=== PATIENT | male | born 1995 | race Two or more races ===

== ENCOUNTER 2017-02-20 19:39 | Emergency (ER) | payer SELFPAY ==
[2017-02-20 19:48] VITALS: TEMP 97.9
[2017-02-20] MEDS ORDERED: predniSONE 20 MG TAB PO ONE (19:48)
[2017-02-20] MEDS ORDERED: IPRATROPIUM/ALBUTEROL 3 ML DEYVIAL IH ONE (19:48)
--- NOTE | 2017-02-20 19:49 | EDPHY ---
H & P Stated Complaint: increased sob and increased use in inhaler x 1 week Time Seen by Provider: 02/20/17 19:44 HPI/ROS: CHIEF COMPLAINT: Dyspnea HISTORY OF PRESENT ILLNESS: The patient is a 21-year-old man with a history of asthma who comes to the emergency department complaining of shortness of breath and cough for the last week. He states that it worsened today. He used his albuterol inhaler about 5 hours ago. He has not had a fever. His cough is nonproductive. He denies chest pain. REVIEW OF SYSTEMS: Constitutional: denies: chills, fever, recent illness, recent injury EENTM: denies: blurred vision, double vision, nose congestion Respiratory: See HPI Cardiac: denies: chest pain, irregular heart rate, lightheadedness, palpitations Gastrointestinal/Abdominal: denies: abdominal pain, diarrhea, nausea, vomiting, blood streaked stools Genitourinary: denies: dysuria, frequency, hematuria, pain Musculoskeletal: denies: joint pain, muscle pain Skin: denies: lesions, rash, jaundice, bruising Neurological: denies: headache, numbness, paresthesia, tingling, dizziness, weakness Hematologic/Lymphatic: denies: blood clots, easy bleeding, easy bruising Immunologic/allergic: denies: HIV/AIDS, transplant EXAM: GENERAL: Well-appearing, well-nourished and in no acute distress. HEAD: Atraumatic, normocephalic. EYES: Pupils equal round and reactive to light, extraocular movements intact, sclera anicteric, conjunctiva are normal. ENT: TMs normal, nares patent, oropharynx clear without exudates. Moist mucous membranes. NECK: Normal range of motion, supple without lymphadenopathy or JVD. LUNGS: Breath sounds clear to auscultation bilaterally and equal. No wheezes rales or rhonchi. HEART: Regular rate and rhythm without murmurs, rubs or gallops. ABDOMEN: Soft, nontender, normoactive bowel sounds. No guarding, no rebound. No masses appreciated. BACK: No CVA tenderness, no spinal tenderness, step-offs or deformities EXTREMITIES: Normal range of motion, no pitting or edema. No clubbing or cyanosis. NEUROLOGICAL: Cranial nerves II through XII grossly intact. Normal speech, normal gait. 5/5 strength, normal movement in all extremities, normal sensation PSYCH: Normal mood, normal affect. SKIN: Warm, dry, normal turgor, no visible rashes or lesions. Source: Patient Exam Limitations: No limitations - Medical/Surgical History Hx Asthma: Yes Hx Chronic Respiratory Disease: No Hx Diabetes: No Hx Cardiac Disease: No Hx Renal Disease: No Hx Cirrhosis: No Hx Alcoholism: No Hx HIV/AIDS: No Hx Splenectomy or Spleen Trauma: No Other PMH: untreated asthma, bronchitis - Family History Significant Family History: No pertinent family hx - Social History Smoking Status: Never smoked Alcohol Use: Sober Drug Use: None Constitutional: Initial Vital Signs Temperature (C) 36.6 C 02/20/17 19:46 Heart Rate 94 02/20/17 19:46 Respiratory Rate 20 02/20/17 19:46 Blood Pressure 116/81 H 02/20/17 19:46 O2 Sat (%) 98 02/20/17 19:46 O2 Delivery Mode Room Air Allergies/Adverse Reactions: No Known Allergies Allergy (Verified 02/20/17 19:45) Home Medications: Medication Instructions Recorded Albuterol Hfa Anes Only [Proair 2 puffs IH Q4 PRN #1 mdi 04/05/16 Hfa Icu (*)] Medical Decision Making ED Course/Re-evaluation: The patient's exam is clear. He is saturating 96% on room air. I will treat with a DuoNeb and steroids and observed. 8:35 p.m. the patient states that he feels some congestion. His vital signs are stable his sats are 98% on room air knee does not have any wheezing or rhonchi on exam. I suspect that he has an exacerbation from the smoke versus early bronchitis. We discussed treatment for this as well as follow-up and indications for returning to the emergency department. He understands and agrees with this plan. Differential Diagnosis: Partial list of the Differential diagnosis considered include but were not limited to; upper respiratory tract infection, asthma exacerbation, bronchitis and although unlikely based on the history and physical exam, I also considered pneumonia, pneumothorax, acute coronary disease. I discussed these differential diagnoses and the plan with the patient as well as the usual and expected course. The patient understands that the diagnosis is provisional and that in medicine we are not always correct and that further workup is often warranted. Usual and customary warnings were given. All of the patient's questions were answered. The patient was instructed to return to the emergency department should the symptoms at all worsen or return, otherwise to followup with the physician as we discussed. - Data Points Medications Given: Discontinued Medications Albuterol/Ipratropium (Duoneb) 3 ml IH EDNOW ONE Stop: 02/20/17 19:49 Last Admin: 02/20/17 19:54 Dose: 3 ml Prednisone (Prednisone) 60 mg PO EDNOW ONE Stop: 02/20/17 19:49 Last Admin: 02/20/17 19:54 Dose: 60 mg Departure - Departure Disposition: Home, Routine, Self-Care Clinical Impression: Exacerbation of asthma Condition: Fair Instructions: Asthma (ED) Referrals: NONE *PRIMARY CARE P,. [Primary Care Provider] - As per Instructions Daksha Santo MD [Medical Doctor] - As per Instructions
[2017-02-20 20:52] VITALS: BP 114/74; PULSE 95; RESP 18; O2SAT 96
== END 2017-02-20 20:52 | disposition home or self-care (01) ==
LOC: CED 19:39
DX: J45.901 Unspecified asthma with (acute) exacerbation (principal)

== ENCOUNTER 2017-03-10 20:49 | Observation (INO) | payer SELFPAY ==
[2017-03-10] MEDS ORDERED: IPRATROPIUM/ALBUTEROL 3 ML DEYVIAL IH ONE (20:57)
[2017-03-10] MEDS ORDERED: ALBUTEROL 3 ML DEYVIAL IH ONE ×2 (20:57→21:02)
[2017-03-10] MEDS ORDERED: NS 1,000 ML IV ONE ×3 (21:00→22:50)
[2017-03-10] MEDS ORDERED: ACETAMINOPHEN 500 MG TAB PO ONE (21:00)
[2017-03-10] MEDS ORDERED: methylPREDNISolone SOD SUCC 125 MG/2 ML VIAL IVP ONE (21:03)
--- NOTE | 2017-03-10 21:06 | EDPHY ---
H & P Source: Patient, Family Exam Limitations: Clinical condition (Patient's translate Icelandic provides more history.) - Medical/Surgical History Hx Asthma: Yes Hx Chronic Respiratory Disease: No Hx Diabetes: No Hx Cardiac Disease: No Hx Renal Disease: No Hx Cirrhosis: No Hx Alcoholism: No Hx HIV/AIDS: No Hx Splenectomy or Spleen Trauma: No Other PMH: untreated asthma, bronchitis - Family History Significant Family History: No pertinent family hx - Social History Smoking Status: Never smoked Alcohol Use: Rarely Drug Use: None Time Seen by Provider: 03/10/17 20:59 HPI/ROS: Over the past 2 days this patient developed cough and nasal congestion. He has had associated fevers. His explains that she recently had URI symptoms and thinks that she gave him her illness. The patient does have a history of [id number] asthma on albuterol MDI and tried his MDI for increasing frequency and intensity of coughing and onset of dyspnea tonight without significant improvement prompting his visit-driven here by private vehicle by his for further evaluation. He rides feeling very dyspneic with 2-3 word dyspnea. He is also complaining of burning in his chest that he has had with previous asthma exacerbations. He has had associated subjective fevers treated at home with ibuprofen with some relief. No other exacerbating factors. ROS: Constitutional: As per HPI-fevers HEENT: Coryza for more than a week. No sinus pain. No ear pain. Pulmonary: Burning discomfort that feels similar to previous bronchitis. No pleuritic pain. Cough occasionally productive of yellow sputum. Cardiovascular: No heart palpitations or lightheadedness. No leg pain. GI: No nausea or vomiting : No complaints Neuro: No complaints Integumentary: No complaints Endocrine: No complaints Complete review of symptoms is otherwise negative. (Brennan Gaspar) - Medical/Surgical History PMH: Asthma since he was an . 2 visits to the emergency department this year. No overnight hospitalizations since he was a young child for asthma. (Brennan Gaspar) - Physical Exam Exam: Notable for temperature 38.4degrees, tachypnea to the mid 30s and tachycardia to the 130s on arrival. O2 sat initially 95% on room air General Appearance: Alert, no distress. Eyes: Pupils equal and round no pallor or injection. ENT, Mouth: Mucous membranes moist. Oropharynx is clear with no exudates erythema or dysphonia. No stridor. Ears: Clear TMs bilaterally. Respiratory: Expiratory wheezing-moderate bilaterally. Mild rhonchi. No rales are appreciated. Cardiovascular: Tachycardia with no murmur gallop or rub. No JVD. No peripheral edema. Gastrointestinal: Abdomen is soft and nontender, no masses, bowel sounds normal. Neurological: GCS 15. Skin: Warm and dry, no rashes. Musculoskeletal: Neck is supple nontender. Extremities are symmetrical, full range of motion. Psychiatric: Patient initially anxious. Otherwise mood and affect normal. DIFFERENTIAL DIAGNOSIS: After history and physical exam differential diagnosis was considered for influenza or similar viral illness with asthma exacerbation, pneumonia, acute bronchitis with asthma exacerbation, pneumothorax, pleurisy, congenital heart abnormality-unlikely (Brennan Gaspar) Constitutional: Initial Vital Signs Temperature (C) 38.2 C 03/10/17 20:54 Heart Rate 134 H 03/10/17 20:54 Respiratory Rate 34 H 03/10/17 20:54 Blood Pressure 154/116 H 03/10/17 20:54 O2 Sat (%) 96 03/10/17 20:54 O2 Delivery Mode Room Air O2 (L/minute) 10 Allergies/Adverse Reactions: No Known Allergies Allergy (Verified 03/10/17 21:07) Home Medications: Medication Instructions Recorded Albuterol [Ventolin Hfa Inhaler] 2 puffs IH Q4H PRN 03/11/17 Ibuprofen [Motrin (*)] 400 mg PO Q4H PRN 03/11/17 Medical Decision Making - Diagnostics Imaging: I viewed and interpreted images myself - Diagnostics EKG Interpretation: 12 lead EKG indication chest pain Performed at 9:40 p.m. sinus tachycardia 131 Intervals: Normal throughout [place]: Normal ST segments: Flat T-waves in inferior leads otherwise normal. Overall assessment sinus tachycardia with borderline T-wave abnormalities inferiorly. (Brennan Gaspar) Imaging Results: Two view chest x-ray: No focal infiltrates or pneumothorax. Airway disease by my interpretation (Brennan Gaspar) ED Course/Re-evaluation: Case reviewed with Dr. Gaspar: Pt in dept at change of shift awaiting EMS transfer to for inpt care for Severe Asthma, Fever, POOJA with Orthostatic Hypotension despite 2 L of NS, improving mildly elevated serial Lactic Acids. He had Received: Duo Neb x1 Ventolin x2 Zithromax Tamiflu 2 L of NS On my exam at 1120 pt is able to speak in full sentences spouse who had been seen by me for POOJA 3 days prior (much better) was functioning as translator/interpreter per his request. BS diminished R vs L to a mild degree with some scattered rhonchir, wheezes only heard with forced exhilation. Rechecked again at 1240 am, EMS to arrive in 10 min Now, the diminshed BS have progressed with again R more so than L no air hunger, moderate rhonchi diffusely Moderate wheeze with forced exhilation thus given his 4th neb awaiting EMS. 0110 - he feels the same, but, BS are improved back to the BS as I hearsd at 2320. EMS is here. (Dmitriy Ortiz) IV, monitor, DuoNeb followed by 2 more albuterol nebs with increased aeration decreased wheeze decreased cough subjective improvement. Solu-Medrol 125 IV Tylenol p. o. for fever Normal saline bolus for tachycardia Review of labs reveals normal white blood cell count with mild increase in neutrophils, elevated lactate to 3.2 electrolytes -mild anion gap. By numbers, this patient presents with positive sepsis criteria with respiratory source of infection, tachypnea, tachycardia, fever but I think that his tachypnea and tachycardia is primarily attributable to his asthmatic disease with associated mild respiratory acidosis. No pneumonia on his chest x-ray. Influenza is unlikely culprit in this patient given his symptoms as 's recent symptoms although she had a negative rapid influenza test here 2 days ago. However, given the severity of his respiratory symptoms, will cover him with 1st dose of Tamiflu pending flu test. Will plan to repeat his lactate after 2 L bolus. He is clinically improving significantly. His rapid influenza test is negative. Given this with significant fever, he warrants treatment with a macrolide (zithromax 500 mg) to cover atypical bacterial pathogens for bronchitis with asthma exacerbation Repeat venous lactate after 2 L NS has nearly normalized to 2.3 On repeat examination at 10:45 p.m. the patient feels improved with near resolution of his cough. No wheezing on repeat examination. Minimal rhonchi. No rales. His temperature is 37degrees centigrade on recheck down from initial 38. He reports that his chest pain has resolved with treatment of his asthma Patient has positive orthostatics despite initial treatment (pulse from 108 seated to 124 standing and systolic pressure from 120 down to 95 with lightheadedness). Will start 3rd L and will admit him to the hospital. Be findings are consistent with sepsis from respiratory pathogen complicated by asthma. His respiratory distress is resolved with treatment of his asthma but given orthostatic findings he warrants admission. I spoke with Dr. Manuela Marshall, hospitalist who accepts the pt. for admission to [facility] bed at [facility]. At 2320, EMS transfer pending bed availability. I also discussed this case with the night physician-Dr. Ortiz, [facility] ED MD. He was aware of the patient's history, findings and disposition plan. ( Brennan Gaspar) - Data Points Laboratory Results: Laboratory Results 03/10/17 21:10 03/10/17 21:10 Microbiology Results: MICROBIOLOGY 03/10/17 21:25 Nasal, Sinus - Swab Respiratory Panel (PCR) - Final Human Rhinovirus/Enterovirus Medications Given: Albuterol/Ipratropium (Duoneb) 3 ml IH Q4H TRAVIS Stop: 09/07/17 02:29 Last Admin: 03/12/17 04:56 Dose: 3 ml Benzonatate (Tessalon Pearles) 200 mg PO TID PRN PRN Reason: Cough, Mild Stop: 09/07/17 10:45 Last Admin: 03/11/17 20:08 Dose: 200 mg Guaifenesin (Mucinex) 1,200 mg PO BID TRAVIS Stop: 09/07/17 10:44 Last Admin: 03/11/17 20:08 Dose: 1,200 mg Guaifenesin/Codeine Phosphate (Robitussin Ac) 10 ml PO Q6HRS PRN PRN Reason: Cough, Moderate Stop: 09/07/17 10:45 Last Admin: 03/12/17 04:53 Dose: 10 ml Sodium Chloride (Ns) 1,000 mls @ 150 mls/hr IV CONT TRAVIS Stop: 09/07/17 15:59 Last Admin: 03/12/17 04:53 Dose: 1,000 mls Ibuprofen (Motrin) 400 mg PO Q4H PRN PRN Reason: Pain, Inflammatory Stop: 09/07/17 10:45 Last Admin: 03/11/17 20:08 Dose: 400 mg Prednisone (Prednisone) 60 mg PO DAILY TRAVIS Stop: 09/07/17 07:59 Last Admin: 03/11/17 08:26 Dose: Not Given Discontinued Medications Acetaminophen (Tylenol) 1,000 mg PO EDNOW ONE Stop: 03/10/17 21:01 Last Admin: 03/10/17 21:15 Dose: 1,000 mg Albuterol (Proventil Neb) 3 ml IH EDNOW ONE Stop: 03/10/17 20:58 Last Admin: 03/10/17 21:05 Dose: 3 ml Albuterol (Proventil Neb) 3 ml IH EDNOW ONE Stop: 03/10/17 21:03 Last Admin: 03/10/17 21:13 Dose: 3 ml Albuterol (Proventil Neb) 3 ml IH EDNOW ONE Stop: 03/11/17 00:37 Last Admin: 03/11/17 00:40 Dose: 3 ml Albuterol/Ipratropium (Duoneb) 3 ml IH EDNOW ONE Stop: 03/10/17 20:58 Last Admin: 03/10/17 20:55 Dose: 3 ml Azithromycin (Zithromax) 500 mg PO EDNOW ONE PRN Reason: Protocol Stop: 03/10/17 22:14 Last Admin: 03/10/17 22:21 Dose: 500 mg Benzonatate (Tessalon Pearles) 200 mg PO EDNOW ONE Stop: 03/10/17 22:09 Last Admin: 03/10/17 22:12 Dose: 200 mg Sodium Chloride (Ns) 1,000 mls @ 0 mls/hr IV ONCE ONE; Wide Open PRN Reason: Protocol Stop: 03/10/17 21:01 Last Admin: 03/10/17 21:13 Dose: 1,000 mls Sodium Chloride (Ns) 1,000 mls @ 0 mls/hr IV ONCE ONE PRN Reason: Wide Open Stop: 03/10/17 21:44 Last Admin: 03/10/17 21:46 Dose: 1,000 mls Sodium Chloride (Ns) 1,000 mls @ 0 mls/hr IV ONCE ONE PRN Reason: Wide Open Stop: 03/10/17 22:51 Last Admin: 03/10/17 22:57 Dose: 1,000 mls Sodium Chloride (Ns) 1,000 mls @ 50 mls/hr IV CONT TRAVIS Stop: 03/11/17 22:14 Last Admin: 03/11/17 02:40 Dose: 1,000 mls Methylprednisolone Sodium Succinate (Solu-Medrol) 125 mg IVP EDNOW ONE Stop: 03/10/17 21:04 Last Admin: 03/10/17 21:14 Dose: 125 mg Oseltamivir Phosphate (Tamiflu) 75 mg PO EDNOW ONE Stop: 03/10/17 21:36 Last Admin: 03/10/17 21:40 Dose: 75 mg Departure - Departure Disposition: [facility] Inpatient Acute Clinical Impression: Asthma exacerbation Sepsis Qualifiers: Sepsis type: sepsis due to unspecified organism Qualified Code(s): A41.9 - Sepsis, unspecified organism Condition: Fair
[2017-03-10 21:24] LABS: % IMMATURE GRANULYOCYTES 0.1 % (0.0-1.1); ABSOLUTE IMMATURE GRANULOCYTES 0.01 10^3/uL (0.00-0.10); ADD DIFF? NO; ADD MORPH? NO; ADD SCAN? NO; ATYPICAL LYMPHOCYTE FLAG 0 (0-99); FRAGMENT RBC FLAG 0 (0-99); HEMATOCRIT 45.5 % (40.0-51.0); HEMOGLOBIN 16.3 g/dL (13.7-17.5); LEFT SHIFT FLG 0 (0-99); LIPEMIA HEMOLYSIS FLAG 90 (0-99); MEAN CELL HEMOGLOBIN CONCENTR. 35.8 g/dL (32.4-36.7); MEAN CELL VOLUME 83.6 fL (81.5-99.8); MEAN PLATELET VOLUME 9.7 fL (8.7-11.7); PLATELET CLUMPS FLAG 0 (0-99); PLATELET COUNT 224 10^3/uL (150-400); RED BLOOD CELL COUNT 5.44 10^6/uL (4.40-6.38); RED CELL DISTRIBUTION WIDTH 12.5 % (11.5-15.2)
[2017-03-10] MEDS ORDERED: OSELTAMIVIR PHOSPHATE 75 MG CAP PO ONE (21:35)
[2017-03-10 21:40] LABS: ANION GAP 17 mEq/L (8-16); CALCIUM 9.4 mg/dL (8.5-10.4); CARBON DIOXIDE 19 mEq/l (22-31); CHLORIDE 102 mEq/L (97-110); CREATININE 0.8 mg/dL (0.7-1.3); GLOMERULAR FILTRATION RATE > 60; GLUCOSE 106 mg/dL (70-100); POTASSIUM 3.8 mEq/L (3.5-5.2); SODIUM 138 mEq/L (134-144)
--- NOTE | 2017-03-10 21:43 | CPEKG ---
Heart Rate: 131 RR Interval: 458 P-R Interval: 136 QRSD Interval: 84 QT Interval: 300 QTC Interval: 443 P Robinson: 43 QRS Robinson: 28 T Wave Robinson: -15 EKG Severity - BORDERLINE ECG - EKG Impression: SINUS TACHYCARDIA EKG Impression: BORDERLINE T ABNORMALITIES, INFERIOR LEADS Electronically Signed By: Brennan Gaspar 10-Mar-2017 23:04:24
[2017-03-10] MEDS ORDERED: BENZONATATE 100 MG CAP PO ONE (22:08)
[2017-03-10] MEDS ORDERED: AZITHROMYCIN 250 MG TAB PO ONE (22:13)
[2017-03-11] MEDS ORDERED: ALBUTEROL 3 ML DEYVIAL IH ONE (00:36)
[2017-03-11] MEDS ORDERED: ONDANSETRON 4 MG/2 ML VIAL IVP PRN (02:06)
[2017-03-11] MEDS ORDERED: ACETAMINOPHEN 325 MG TAB PO PRN (02:06)
[2017-03-11] MEDS ORDERED: ALBUTEROL 3 ML DEYVIAL IH PRN (02:06)
[2017-03-11] MEDS ORDERED: ONDANSETRON DISINTEGRATING 4 MG TAB PO PRN (02:06)
[2017-03-11] MEDS ORDERED: NS 1,000 ML IV SCH (02:15)
--- NOTE | 2017-03-11 02:17 | PDGENHP ---
History and Physical - Chief Complaint dyspnea, wheezing - History of Present Illness 21 yo estonian speaking male with h/o asthma since infancy [place] [facility] [place] with dyspnea and wheezing. He was seen 2 weeks prior with asthma exacerbation thought secondary to poor air quality due to smoke. He got better, but again worsened yesterday. His has had URI symptoms and was seen in urgent care 2 days ago with a negative flu test. He thinks he caught his 's URI. He complains of cough, sore throat, congestion and shortness of breath. His cough is productive of phlegm. No fevers. In the ED, he had a negative rapid flu. He was given 125 mg IV Solumedrol and a total of 4 nebs. His lactate was elevated and he met criteria for sepsis with an elevated heart rate and respiratory rate. He was treated with 2 L NS fluid boluses and received Azithromycin. He is transferred to [facility] for admission. History Information - Allergies/Home Medication List Allergies/Adverse Reactions: No Known Allergies Allergy (Verified 03/10/17 21:07) I have personally reviewed and updated: family history, medical history, social history, surgical history - Past Medical History asthma - Surgical History Reports: no pertinent surgical hx - Family History Positive for: asthma - Social History Smoking Status: Never smoked Alcohol Use: Rarely Drug Use: None Additional social history: Lives with his , who is present at the bedside Review of Systems Review of Systems: ROS: 10pt was reviewed & negative except for what was stated in HPI & below Physical Exam Physical Exam: Temp Pulse Resp BP Pulse Ox 36.8 C 107 H 26 H 100/55 L 96 03/11/17 01:27 03/11/17 01:27 03/11/17 01:27 03/11/17 01:27 03/11/17 01:27 O2 (L/minute) 10 Constitutional: no apparent distress Eyes: PERRL Ears, Nose, Mouth, Throat: moist mucous membranes Cardiovascular: tachycardia Respiratory: no respiratory distress, clear to auscultation Gastrointestinal: normoactive bowel sounds, soft, non-tender abdomen Skin: warm Musculoskeletal: full muscle strength Neurologic: AAOx3 Psychiatric: interacting appropriately, anxious Lab Data & Imaging Review 03/10/17 21:10 03/10/17 21:10 WBC 9.60 10^3/uL (3.80-9.50) H 03/10/17 21:10 RBC 5.44 10^6/uL (4.40-6.38) 03/10/17 21:10 Hgb 16.3 g/dL (13.7-17.5) 03/10/17 21:10 Hct 45.5 % (40.0-51.0) 03/10/17 21:10 MCV 83.6 fL (81.5-99.8) 03/10/17 21:10 MCH 30.0 pg (27.9-34.1) 03/10/17 21:10 MCHC 35.8 g/dL (32.4-36.7) 03/10/17 21:10 RDW 12.5 % (11.5-15.2) 03/10/17 21:10 Plt Count 224 10^3/uL (150-400) 03/10/17 21:10 MPV 9.7 fL (8.7-11.7) 03/10/17 21:10 Neut % (Auto) 70.6 % (39.3-74.2) 03/10/17 21:10 Lymph % (Auto) 18.2 % (15.0-45.0) 03/10/17 21:10 [place] % (Auto) 10.0 % (4.5-13.0) 03/10/17 21:10 Eos % (Auto) 0.7 % (0.6-7.6) 03/10/17 21:10 Baso % (Auto) 0.4 % (0.3-1.7) 03/10/17 21:10 Nucleat RBC Rel Count 0.0 % (0.0-0.2) 03/10/17 21:10 Absolute Neuts (auto) 6.77 10^3/uL (1.70-6.50) H 03/10/17 21:10 Absolute Lymphs (auto) 1.75 10^3/uL (1.00-3.00) 03/10/17 21:10 Absolute Monos (auto) 0.96 10^3/uL (0.30-0.80) H 03/10/17 21:10 Absolute Eos (auto) 0.07 10^3/uL (0.03-0.40) 03/10/17 21:10 Absolute Basos (auto) 0.04 10^3/uL (0.02-0.10) 03/10/17 21:10 Absolute Nucleated RBC 0.00 10^3/uL (0-0.01) 03/10/17 21:10 Immature Gran % 0.1 % (0.0-1.1) 03/10/17 21:10 Immature Gran # 0.01 10^3/uL (0.00-0.10) 03/10/17 21:10 VBG Lactic Acid 2.3 mmol/L (0.7-2.1) H D 03/10/17 22:25 Sodium 138 mEq/L (134-144) 03/10/17 21:10 Potassium 3.8 mEq/L (3.5-5.2) 03/10/17 21:10 Chloride 102 mEq/L (97-110) 03/10/17 21:10 Carbon Dioxide 19 mEq/l (22-31) L 03/10/17 21:10 Anion Gap 17 mEq/L (8-16) H 03/10/17 21:10 BUN 10 mg/dL (7-23) 03/10/17 21:10 Creatinine 0.8 mg/dL (0.7-1.3) 03/10/17 21:10 Estimated GFR > 60 03/10/17 21:10 Glucose 106 mg/dL (70-100) H 03/10/17 21:10 Calcium 9.4 mg/dL (8.5-10.4) 03/10/17 21:10 Influenza A,B Rapid NEGATIVE FOR FLU (NEGATIVE) 03/10/17 21:53 Assessment & Plan Assessment: Acute asthma exacerbation - Rapid flu negative. Respiratory pathogen panel pending. Suspect viral URI trigger. No hypoxemia here. He presented with SIRS criteria, but no obvious bacterial infection. [place] [facility] not [place] [facility] for my review. Per ED doc notes, there is no infiltrate, but airway disease is noted. -Admit to med surg -Q4h duonebs, Q2h albuterol nebs prn -cont steroids, oral prednisone 60 mg daily. He likely needs a steroid inhaler at discharge. -will continue azithromycin for total of 1.5 g -f/u respiratory pathogen panel -BCx's pending AGMA - mild, likely lactic acidosis. Lactate trending down after IVF's. -recheck bmp in am Full code Dispo - obs
[2017-03-11] MEDS: IPRATROPIUM/ALBUTEROL 3 ML DEYVIAL IH SCH ×6 (03:23→23:06)
[2017-03-11 05:08] LABS: ANION GAP 17 mEq/L (8-16); CARBON DIOXIDE 16 mEq/l (22-31); CHLORIDE 108 mEq/L (97-110); CREATININE 0.7 mg/dL (0.7-1.3); GLOMERULAR FILTRATION RATE > 60; GLUCOSE 142 mg/dL (70-100); POTASSIUM 4.2 mEq/L (3.5-5.2); SODIUM 141 mEq/L (134-144)
[2017-03-11] MEDS: predniSONE 20 MG TAB PO SCH ×2 (08:24→08:26)
[2017-03-11] MEDS ORDERED: IBUPROFEN 200 MG TAB PO PRN (10:46)
--- NOTE | 2017-03-11 10:50 | HOSPPROG ---
Hospitalist Progress Note Assessment/Plan: Prolonged service in addition to the history and physical originally by Dr. Manuela Marshall, direct patient care, at bedside with patient and his , for 35 minutes from 9:00 a.m. until 9:35 a.m., addressing the following: -patient presents with asthma exacerbation secondary to enterovirus -patient with systemic inflammatory response syndrome and potentially developing sepsis, with venous lactic acid peaking at 3.9, down trending to 2.7 with IV fluids, continue IV fluids and repeat serial lactic acids until cleared , monitor serum bicarbonate level daily -asthma exacerbations responding nicely to steroids and nebulizer treatments, continue scheduled duo nebs, as needed albuterol, prednisone 60 daily, supportive care with antitussives and mucolytics -there is no bacterial component, discontinue antibiotic -patient initially with positive orthostatics, monitor his hemodynamics closely , warrants ongoing close care -sinus tachycardia on EKG, appropriate for med surge -counseled patient and regarding the diagnosis, treatment plan, recommended that utilize a mask when out of room as she also appears to be ill from probably the same virus, she is not tachycardic at this time Objective: Vital Signs Temp Pulse Resp BP Pulse Ox 37.1 C 103 H 16 115/69 92 03/11/17 08:00 03/11/17 09:34 03/11/17 09:34 03/11/17 08:00 03/11/17 09:34 Laboratory Results 03/11/17 04:28 03/10/17 03/11/17 03/12/17 05:59 05:59 05:59 Intake Total 3800 Output Total 1100 Balance 2700 - Physical Exam Cardiovascular: tachycardia, No irregularly irregular, No edema Respiratory: No expiratory wheeze, No inspiratory crackles, No bronchial breath sounds Gastrointestinal: normoactive bowel sounds, soft, non-tender abdomen, no palpable masses Psychiatric: interacting appropriately, not anxious, not encephalopathic, thought process linear Lymph, Heme, Immunologic: other (non-tender bilat submandibular LAD) ICD10 Worksheet Patient Problems: Problems Problem Status Onset Asthma exacerbation Acute Sepsis Acute
[2017-03-11] MEDS: BENZONATATE 100 MG CAP PO PRN ×2 (11:16→20:08)
[2017-03-11] MEDS: guaiFENesin 600 MG TAB.ER PO SCH ×2 (11:16→20:08)
[2017-03-11] MEDS: guaiFENesin/CODEINE PHOS 10 ML UDCUP PO PRN (15:42)
[2017-03-11] MEDS: NS 1,000 ML IV SCH (15:42)
[2017-03-11] MEDS ORDERED: AZITHROMYCIN 250 MG TAB PO SCH (18:00)
[2017-03-12] MEDS: IPRATROPIUM/ALBUTEROL 3 ML DEYVIAL IH SCH ×4 (03:12→13:25)
[2017-03-12 04:27] LABS: % IMMATURE GRANULYOCYTES 0.3 % (0.0-1.1); ABSOLUTE IMMATURE GRANULOCYTES 0.03 10^3/uL (0.00-0.10); ADD DIFF? NO; ADD MORPH? NO; ADD SCAN? NO; ATYPICAL LYMPHOCYTE FLAG 0 (0-99); FRAGMENT RBC FLAG 0 (0-99); HEMATOCRIT 41.9 % (40.0-51.0); HEMOGLOBIN 14.4 g/dL (13.7-17.5); LEFT SHIFT FLG 0 (0-99); LIPEMIA HEMOLYSIS FLAG 90 (0-99); MEAN CELL HEMOGLOBIN 30.3 pg (27.9-34.1); MEAN CELL HEMOGLOBIN CONCENTR. 34.4 g/dL (32.4-36.7); MEAN PLATELET VOLUME 9.7 fL (8.7-11.7); PLATELET CLUMPS FLAG 0 (0-99); PLATELET COUNT 214 10^3/uL (150-400); RED BLOOD CELL COUNT 4.76 10^6/uL (4.40-6.38); RED CELL DISTRIBUTION WIDTH 13.2 % (11.5-15.2)
[2017-03-12 04:48] LABS: ALANINE AMINOTRANSFERASE 43 IU/L (21-72); ALBUMIN 3.3 g/dL (3.5-5.0); ALKALINE PHOSPHATASE 55 IU/L (38-126); ANION GAP 10 mEq/L (8-16); ASPARTATE AMINOTRANSFERASE 29 IU/L (17-59); BILIRUBIN,TOTAL 0.5 mg/dL (0.1-1.4); CALCIUM 8.9 mg/dL (8.5-10.4); CARBON DIOXIDE 20 mEq/l (22-31); CHLORIDE 107 mEq/L (97-110); CREATININE 0.8 mg/dL (0.7-1.3); GLOMERULAR FILTRATION RATE > 60; GLUCOSE 102 mg/dL (70-100); POTASSIUM 4.2 mEq/L (3.5-5.2); SODIUM 137 mEq/L (134-144); TOTAL PROTEIN 6.2 g/dL (6.3-8.2)
[2017-03-12] MEDS: NS 1,000 ML IV SCH (04:53)
[2017-03-12] MEDS: guaiFENesin/CODEINE PHOS 10 ML UDCUP PO PRN ×2 (04:53→12:01)
[2017-03-12 08:07] VITALS: BP 109/66; TEMP 98.1; O2SAT 94
[2017-03-12] MEDS: guaiFENesin 600 MG TAB.ER PO SCH (08:08)
[2017-03-12] MEDS: predniSONE 20 MG TAB PO SCH (08:08)
[2017-03-12 09:53] VITALS: RESP 18
--- NOTE | 2017-03-12 10:22 | ASMTCMCOM ---
CM Note CM Note Notes: 03/12/2017 Case Management Note: Reviewed chart. No d/c case management needs identified d/t pt activity levels prior to admission and age. Case Management d/c poc: Home independent w/family support when medically stable. Pt will be screened for Medicaid application d/t self pay insurance. Date Signed: 03/12/2017 10:21 AM Electronically Signed By:Moira Posadas RN
[2017-03-12] MEDS ORDERED: ALBUTEROL 60 PUFFS/8 GM MDI IH PRN (11:58)
[2017-03-12] MEDS ORDERED: ALBUTEROL 200 PUFFS/18 GM MDI IH PRN (12:06)
[2017-03-12 13:31] VITALS: PULSE 96
--- NOTE | 2017-03-12 14:26 | PDDCSUM ---
Discharge Summary Discharge Summary: DISCHARGE SUMMARY FOLLOW-UP ITEMS: Outpatient pulmonary function tests, initiate chronic therapy for asthma DATE OF ADMISSION: 03/10/2017 DATE OF DISCHARGE: 03/12/2017 DISCHARGE DIAGNOSES: 1. Acute asthma exacerbation 2. Enterovirus infection 3. Systemic inflammatory response syndrome 4. Acute metabolic acidosis CONSULTATIONS: None PROCEDURES / IMAGING: Chest x-ray demonstrating no focal infiltrate CHIEF COMPLAINT: Acute shortness of breath and cough SUBJECTIVE: Patient is feeling better time of discharge, he continues to experience a cough intermittently PHYSICAL EXAM ON DISCHARGE: Systolic blood pressure is 1/20, heart rate 90, afebrile overnight, satting well on room air, lungs demonstrate faint expiratory wheezes bilaterally with no bronchial breath sounds, he is no longer tachypneic, heart rhythm is regular, LABS ON DISCHARGE: Lactic acid 1.4, serum bicarb 20, white blood count 03428, creatinine 0.8, liver panel unremarkable HOSPITAL COURSE BY PROBLEM: Patient presented with acute asthma exacerbation as evidenced by diffuse expiratory wheezes, tachypnea, hypoxia, secondary to recent infection by enterovirus. Patient was treated supportively with IV steroids, scheduled albuterol treatments, was transitioned safely to a combination of prednisone and albuterol inhaler. Received supportive care with antitussives and he also received Mucinex. He received IV fluids for his metabolic acidosis caused by his systemic inflammatory response syndrome, caused by his viral infection. DISCHARGE MEDICATIONS: Please see official discharge medication reconciliation sheet in chart , albuterol inhaler, prednisone 60 for 3 subsequent days, guaifensin/codeine/ tessalon PRN. DISCHARGE INSTRUCTIONS: Please establish care [facility].
--- NOTE | 2017-03-13 15:45 | ASDISCHSUM ---
Discharge Information Plan Status:Home with No Needs Medically Cleared to Leave:03/12/2017 Discharge Date:03/12/2017 04:34 PM CM D/C Disposition:Home, Routine, Self-Care ADT D/C Disposition:Home, Routine, Self-Care Projected Discharge Date:03/12/2017 12:00 AM Transportation at D/C:Family Discharge Delay Reason: Follow-Up Date:03/12/2017 12:00 AM Discharge Slot: Final Diagnosis: Placement Information Patient Contact Information Contact Name:LINDSEY Relationship:Other Address:[address] [place] [address] Work Phone: [facility] Phone: [facility]/Zip Code:[place] [address] Email: Financial Information Financial Class:Self-Pay Primary Plan Desc:SELF PAY Primary Plan Number: Secondary Plan Desc: Secondary Plan Number: Assessment Information [facility] CM Progress Note CM Note CM Note Notes: 03/12/2017 Case Management Note: Reviewed chart. No d/c case management needs identified d/t pt activity levels prior to admission and age. Case Management d/c poc: Home independent w/family support when medically stable. Pt will be screened for Medicaid application d/t self pay insurance. Date Signed: 03/12/2017 10:21 AM Electronically Signed By:Moira Posadas RN Intervention Information
== END 2017-03-12 16:34 | disposition home or self-care (01) ==
LOC: CED 20:49 → INTOOBSV 23:18 → CEDHOLD 23:18 → F2W 03-11 01:43
PROVIDERS: ADMIT Hospitalist; ATTEND Internal Medicine
DX: J45.901 Unspecified asthma with (acute) exacerbation (principal); B34.1 Enterovirus infection, unspecified; E87.2 Acidosis
CPT/HCPCS: 80048-PO; 83605-PO; 85025-PO; 87400-PO; 96374; G0378

== ENCOUNTER 2017-10-10 12:46 | Emergency (ER) | payer OTHER ==
--- NOTE | 2017-10-10 13:38 | EDPHY ---
H & P Time Seen by Provider: 10/10/17 13:36 HPI/ROS: Chief complaint. Headache HPI. Patient is 21-year-old male with multiple complaints. He has had a headache off and on for 2 weeks. It is all over his head. He has had no trauma. He has had no recent illness. His vision is normal. He is occasionally dizzy. He does not have weakness or numbness to arms or legs. He walks normally. He has not had significant trouble with headaches in the past. Also over the past 2 weeks he has had occasional chest discomfort and trouble breathing. Pain is left anterior chest without radiation. His says that he passed out a few days ago and then came to slightly confused. There was no seizure activity noted. She notes he has had a hard time remembering things such as how to get home and the year over the past 2-3 weeks. However again he has had no fever and really otherwise been okay and been going to work. ROS Constitutional. Memory loss Eyes. no problems with vision ENT. no sore throat, no nasal drainage Cardiovascular. Occasional chest pain Respiratory. Occasional shortness of breath without cough Abdominal. no abdominal pain, no nausea/vomiting, no diarrhea . no problems urinating MS. no calf pain/swelling, no neck/back pain, no joint pain Skin. no rash Lymph. no swollen glands Neuro. Headache, apparent syncope, dizzy Past Medical/Surgical History: Asthma Social History: , nonsmoker, no alcohol Smoking Status: Never smoked Physical Exam: General Appearance: Alert well-developed male mild distress vital signs are stable. He is afebrile Eyes: Pupils equal and round no pallor or injection. ENT, Mouth: Mucous membranes are moist. Respiratory: There are no retractions, lungs are clear to auscultation. Cardiovascular: Regular rate and rhythm. Gastrointestinal: Abdomen is soft and nontender, no masses, bowel sounds normal. Neurological: Awake and alert, sensory and motor exams grossly normal. Skin: Warm and dry, no rashes. Musculoskeletal: Neck is supple nontender. Extremities symmetrical, full range of motion. Psychiatric: Patient is oriented X 3, there is no agitation. Constitutional: Initial Vital Signs Temperature (C) 36.9 C 10/10/17 12:53 Heart Rate 83 10/10/17 12:53 Respiratory Rate 16 10/10/17 12:53 Blood Pressure 110/74 04/26/18 12:53 O2 Sat (%) 96 10/10/17 12:53 O2 Delivery Mode Room Air Allergies/Adverse Reactions: No Known Allergies Allergy (Verified 10/10/17 12:50) Home Medications: Medication Instructions Recorded Acetaminophen [Tylenol 325mg (*)] 650 mg PO Q4HRS PRN tab 03/12/17 Albuterol [Ventolin Hfa Inhaler] 2 puffs IH Q4H PRN #1 mdi 03/12/17 Medical Decision Making - Diagnostics EKG Interpretation: EKG interpreted by me shows normal sinus rhythm normal interval and axis. QRS is normal there is no significant ST elevation or depression. No arrhythmia. The rate is 70 Imaging Results: Imaging Impressions Head CT 10/10/17 13:50 Impression: 1. Normal CT brain without contrast. 2. No hemorrhage, hydrocephalus or mass effect. 3. No sinusitis. Findings and recommendations discussed with Emergency Department physician, Dr. Nick Avendano at 1418 hours on October 10, 2017. Final report concurs with initial preliminary interpretation. Chest X-Ray 10/10/17 13:51 Impression: No acute pulmonary disease. Head CT reviewed by me and discussed with is normal Two view chest x-ray interpreted by me is normal. No evidence for pneumonia Procedures: IV normal saline. Toradol IV ED Course/Re-evaluation: Recheck at 2:29 p.m.. Patient is stable. Re-evaluation 2:50 p.m. Patient is stable. He is feeling better. The patient, his , and I discussed imaging and lab results. We discussed treatment plan including criteria for return and importance of follow-up and further evaluation. They expressed understanding and agreement Differential Diagnosis: A constellation of symptoms. I have considered acute coronary syndrome, arrhythmia, pneumonia, intracranial bleeding, migraine. Workup is normal. No explanation for memory difficulty and syncope several days ago. - Data Points Laboratory Results: Laboratory Results 10/10/17 14:23 10/10/17 14:23 10/10/17 10/10/17 10/10/17 14:23 14:23 14:23 WBC 7.34 10^3/uL 10^3/uL (3.80-9.50) RBC 5.23 10^6/uL 10^6/uL (4.40-6.38) Hgb 15.7 g/dL g/dL (13.7-17.5) Hct 44.6 % % (40.0-51.0) MCV 85.3 fL fL (81.5-99.8) MCH 30.0 pg pg (27.9-34.1) MCHC 35.2 g/dL g/dL (32.4-36.7) RDW 12.2 % % (11.5-15.2) Plt Count 254 10^3/uL 10^3/uL (150-400) MPV 9.6 fL fL (8.7-11.7) Neut % (Auto) 63.2 % % (39.3-74.2) Lymph % (Auto) 27.2 % % (15.0-45.0) [place] % (Auto) 8.0 % % (4.5-13.0) Eos % (Auto) 0.8 % % (0.6-7.6) Baso % (Auto) 0.5 % % (0.3-1.7) Nucleat RBC Rel Count 0.0 % % (0.0-0.2) Absolute Neuts (auto) 4.63 10^3/uL 10^3/uL (1.70-6.50) Absolute Lymphs (auto) 2.00 10^3/uL 10^3/uL (1.00-3.00) Absolute Monos (auto) 0.59 10^3/uL 10^3/uL (0.30-0.80) Absolute Eos (auto) 0.06 10^3/uL 10^3/uL (0.03-0.40) Absolute Basos (auto) 0.04 10^3/uL 10^3/uL (0.02-0.10) Absolute Nucleated RBC 0.00 10^3/uL 10^3/uL (0-0.01) Immature Gran % 0.3 % % (0.0-1.1) Immature Gran # 0.02 10^3/uL 10^3/uL (0.00-0.10) D-Dimer < 0.27 ug/mLFEU ug/mLFEU (0.00-0.50) Sodium 140 mEq/L mEq/L (135-145) Potassium 4.2 mEq/L mEq/L (3.5-5.2) Chloride 102 mEq/L mEq/L (97-110) Carbon Dioxide 26 mEq/l mEq/l (22-31) Anion Gap 12 mEq/L mEq/L (8-16) BUN 15 mg/dL mg/dL (7-23) Creatinine 0.8 mg/dL mg/dL (0.7-1.3) Estimated GFR > 60 Glucose 94 mg/dL mg/dL (70-100) Calcium 9.6 mg/dL mg/dL (8.5-10.4) Troponin I < 0.012 ng/mL ng/mL (0.000-0.034) Medications Given: Discontinued Medications Sodium Chloride (Ns) 1,000 mls @ 0 mls/hr IV ONCE ONE; Wide Open PRN Reason: Protocol Stop: 10/10/17 13:51 Last Admin: 10/10/17 14:25 Dose: 1,000 mls Ketorolac Tromethamine (Toradol) 30 mg IVP EDNOW ONE Stop: 10/10/17 13:51 Last Admin: 10/10/17 14:26 Dose: 30 mg Departure - Departure Disposition: Home, Routine, Self-Care Clinical Impression: Headache Qualifiers: Headache type: unspecified Headache chronicity pattern: acute headache Intractability: not intractable Qualified Code(s): R51 - Headache Syncope Qualifiers: Encounter type: initial encounter Condition: Good Instructions: Acute Headache (ED) Additional Instructions: Drink plenty of fluids and stay hydrated. Ibuprofen 800 mg every 6 hr, Tylenol 1000 mg every 4-6 hours as needed for headache. Return for worsening headache, fever, another passing out episode. Keep your follow-up appointment at [facility] Referrals: ANTONIETA CORRAL [Other] - 2-3 days, if not improved
[2017-10-10] MEDS ORDERED: KETOROLAC 30 MG/1 ML SDV IVP ONE (13:50)
[2017-10-10] MEDS ORDERED: NS 1,000 ML IV ONE (13:50)
--- NOTE | 2017-10-10 14:00 | CPEKG ---
Heart Rate: 70 RR Interval: 857 P-R Interval: 132 QRSD Interval: 84 QT Interval: 380 QTC Interval: 410 P [place]: 10 QRS [place]: 20 T Wave [place]: 2 EKG Severity - NORMAL ECG - EKG Impression: SINUS RHYTHM Electronically Signed By: Nick Avendano 10-Oct-2017 14:08:56
[2017-10-10 14:31] LABS: PLATELET COUNT 254 10^3/uL (150-400)
[2017-10-10 15:43] VITALS: BP 131/68
== END 2017-10-10 15:41 | disposition home or self-care (01) ==
LOC: CED 12:46
DX: R51 Headache (principal); R55 Syncope and collapse; J45.909 Unspecified asthma, uncomplicated; E86.9 Volume depletion, unspecified
CPT/HCPCS: 70450-PO; 71046-PO; 80048-PO; 84484-PO; 85025-PO; 85378-PO; 96374; J1885

== ENCOUNTER 2017-12-18 23:05 | Emergency (ER) | payer OTHER ==
[2017-12-18] MEDS ORDERED: HYDROmorphONE/DILAUDID 2 MG/ML INJ IVP ONE (23:44)
[2017-12-18] MEDS ORDERED: HYDROmorphONE/DILAUDID 1 MG/ML INJ ONE (23:45)
[2017-12-18 23:49] LABS: PLATELET COUNT 247 10^3/uL (150-400)
[2017-12-18] MEDS ORDERED: NS 1,000 ML IV ONE (23:53)
[2017-12-19] MEDS ORDERED: IOPAMIDOL (ISOVUE-300) 100 ML BTL ONE (00:43)
--- NOTE | 2017-12-19 00:44 | EDPHY ---
H & P Stated Complaint: L flank pain Time Seen by Provider: 12/19/17 00:31 HPI/ROS: HPI The patient presents with left lower quadrant pain which started this morning is been progressive throughout the course of the day. Pain is constant, achy in nature, radiates throughout his left abdomen and flank. It is not associated with any nausea, vomiting, fevers, diarrhea, constipation. The pain feels somewhat reminiscent of prior kidney stone, however location is different than previous. Prior to my assessment, he received a dose of Dilaudid for his pain and he is feeling better.. REVIEW OF SYSTEMS Constitutional: No fever, no chills. Eyes: No discharge. ENT: No sore throat. Cardiovascular: No chest pain, no palpitations. Respiratory: No cough, no shortness of breath. Gastrointestinal: See HPI Genitourinary: No hematuria. Musculoskeletal: No back pain. Skin: No rashes. Neurological: No headache. PMHx: History of kidney stone Soc Hx: Burkinan speaking, here with his who is providing interpretation per her request PHYSICAL General Appearance: Alert, no distress Eyes: Pupils equal and round no pallor or injection ENT, Mouth: Mucous membranes moist Respiratory: There are no retractions, lungs are clear to auscultation Cardiovascular: Regular rate and rhythm Gastrointestinal: Abdomen is soft with tenderness in the left lower quadrant which is moderate in severity Neurological: A&O, moves all extremities Skin: Warm and dry, no rashes Musculoskeletal: Neck is supple non tender Extremities: symmetrical, full range of motion Psychiatric: Patient is oriented X 3, there is no agitation Source: Patient Exam Limitations: No limitations - Personal History Current Tetanus/Diphtheria Vaccine: Unsure Current Tetanus Diphtheria and Acellular Pertussis (TDAP): Unsure - Medical/Surgical History Hx Asthma: Yes Hx Chronic Respiratory Disease: No Hx Diabetes: No Hx Cardiac Disease: No Hx Renal Disease: No Hx Cirrhosis: No Hx Alcoholism: No Hx HIV/AIDS: No Hx Splenectomy or Spleen Trauma: No Other PMH: Med hx-asthma. SUrg-none - Social History Smoking Status: Never smoked Constitutional: Initial Vital Signs Temperature (C) 36.3 C 12/18/17 23:17 Heart Rate 82 12/18/17 23:17 Respiratory Rate 18 12/18/17 23:17 Blood Pressure 192/76 H 12/18/17 23:17 O2 Sat (%) 98 12/18/17 23:17 O2 Delivery Mode Room Air Allergies/Adverse Reactions: reishi mushroom [mushrooms] Allergy (Verified 12/18/17 23:22) Home Medications: Medication Instructions Recorded Albuterol [Ventolin Hfa Inhaler] 2 puffs IH Q4H PRN #1 mdi 03/12/17 Medical Decision Making - Diagnostics Imaging Results: CT abdomen pelvis with IV contrast demonstrates mild constipation, discussed with the radiologist call. Differential Diagnosis: 21-year-old male who presents with 1 day of progressive left lower quadrant pain with no associated features. On exam, he is moderately tender in the left lower quadrant without rebound or guarding. Differential diagnosis includes diverticulitis, pyelonephritis, ureterolithiasis. In the emergency department, patient received IV fluids and Dilaudid. Labs were checked and were relatively unremarkable. CT scan of abdomen pelvis was ordered. CT scan demonstrated only mild constipation with no other findings. Labs were unremarkable. The patient had ongoing pain, thus he was given a dose of Toradol in the emergency department and he was observed. After about an hour, his pain improved. Repeat abdominal exam was benign. I suspect his symptoms are from constipation verses a muscle strain. I have discussed treatment of constipation with him and his . He will be discharged from the emergency department. He he is aware of return precautions. - Data Points Laboratory Results: Laboratory Results 12/18/17 23:39 12/18/17 23:39 Medications Given: Discontinued Medications Acetaminophen (Tylenol) 1,000 mg PO EDNOW ONE Stop: 12/19/17 01:30 Last Admin: 12/19/17 01:35 Dose: 1,000 mg Hydromorphone HCl (Dilaudid) 1 mg IVP EDNOW ONE Stop: 12/18/17 23:45 Last Admin: 12/18/17 23:47 Dose: 1 mg Sodium Chloride (Ns) 1,000 mls @ 0 mls/hr IV ONCE ONE PRN Reason: Wide Open Stop: 12/18/17 23:54 Last Admin: 12/18/17 23:54 Dose: 1,000 mls Ketorolac Tromethamine (Toradol) 15 mg IVP EDNOW ONE Stop: 12/19/17 01:30 Last Admin: 12/19/17 01:36 Dose: 15 mg Departure - Departure Disposition: Home, Routine, Self-Care Clinical Impression: Abdominal pain, left lower quadrant Condition: Good Instructions: Acute Abdominal Pain (ED) Additional Instructions: I recommend you take ibuprofen 400 mg with acetaminophen 650 mg every 6 hr as needed for pain. I would like for you to see your primary care doctor in 1-2 days unless her pain has completely improved. You should return to the emergency department if your worse in any way. Referrals: [facility],. [Clinic] - As per Instructions Print Language: Burkinan
[2017-12-19] MEDS ORDERED: ACETAMINOPHEN 500 MG TAB PO ONE (01:29)
[2017-12-19] MEDS ORDERED: KETOROLAC 15 MG/1 ML SDV IVP ONE (01:29)
[2017-12-19 03:04] VITALS: BP 134/87
== END 2017-12-19 03:04 | disposition home or self-care (01) ==
DX: R10.32 Left lower quadrant pain (principal); J45.909 Unspecified asthma, uncomplicated
CPT/HCPCS: 96374; J1170; J1885; Q9967

== ENCOUNTER 2018-07-17 06:16 | Emergency (ER) | payer SELFPAY ==
[2018-07-17] MEDS ORDERED: ONDANSETRON 4 MG/2 ML VIAL IVP ONE (07:04)
[2018-07-17] MEDS ORDERED: KETOROLAC 15 MG/1 ML SDV IVP ONE (07:04)
[2018-07-17] MEDS ORDERED: NS 1,000 ML IV ONE (07:04)
--- NOTE | 2018-07-17 07:31 | EDPHY ---
H & P Stated Complaint: c/o LUQ abd pain yesterday - this am Dizzyness/Nausea Time Seen by Provider: 07/17/18 06:55 HPI/ROS: Chief Complaint: Abdominal pain, lightheaded HPI: 22-year-old male presenting with abdominal pain which began at 11:00 a.m. Yesterday morning. Is in the left hand side. This morning he had some lightheadedness and nausea. No vomiting. Has had some loose stools but no diarrhea. No fevers or chills. No constipation. Patient had a similar episode last December. He is initially seen at [facility] and had a CT scan which showed constipation. The patient was then sent to [facility] by his primary care physician the following day. He had a repeat scan at that time which was reported as mild subacute diverticulitis. He had a course of antibiotics. He was followed up a month later had a 3rd CT scan which at that time showed some nearly resolved diverticulitis. He was referred to Gastroenterology for further evaluation but has yet to follow up. Pain is about a 7/10. There are no aggravating or alleviating factors. It does feel similar to the pain he had last summer. He does have a history of kidney stones as well but this does not feel the same. Did have some urinary frequency 2 days ago but that has since resolved. Pain is not radiating. There are no aggravating or alleviating factors. ROS: 10 systems were reviewed and were negative except those elements noted in the HPI. PMH: Renal calculi, question diverticulitis Social History: No smoking, no alcohol, no recreational drug use Family History: non-contributory Physical Exam: Gen: Awake, Alert, No Distress HEENT: Nose: no rhinorrhea Eyes: PERRLA, EOMI Mouth: Moist mucosa Neck: Supple, no JVD Chest: nontender, lungs clear to auscultation Heart: S1, S2 normal, no murmur Abd: Soft, very mild left-sided abdominal tenderness, no rebound, no guarding Back: no CVA tenderness, no midline tenderness Ext: no edema, non-tender Skin: no rash Neuro: CN II-XII intact, Sensation grossly intact, Strength 5/5 in bilateral upper and lower extremities - Personal History Current Tetanus Diphtheria and Acellular Pertussis (TDAP): Yes - Medical/Surgical History Hx Asthma: Yes Hx Chronic Respiratory Disease: No Hx Diabetes: No Hx Cardiac Disease: No Hx Renal Disease: No Hx Cirrhosis: No Hx Alcoholism: No Hx HIV/AIDS: No Hx Splenectomy or Spleen Trauma: No Other PMH: Med hx-asthma/ Diverticulitis. SUrg-none - Social History Smoking Status: Never smoked Constitutional: Initial Vital Signs Temperature (C) 36.6 C 07/17/18 06:21 Heart Rate 72 07/17/18 06:21 Respiratory Rate 20 07/17/18 06:21 Blood Pressure 123/70 H 07/17/18 06:21 O2 Sat (%) 97 07/17/18 06:21 O2 Delivery Mode Room Air Allergies/Adverse Reactions: reishi mushroom [mushrooms] Allergy (Verified 07/17/18 07:42) Home Medications: Medication Instructions Recorded Albuterol [Ventolin Hfa Inhaler] 2 puffs IH Q4H PRN #1 mdi 03/12/17 Amoxicillin/Clavulanate Pot 875 mg PO BID #20 tab 07/17/18 [Augmentin 875 MG TAB (*)] Medical Decision Making ED Course/Re-evaluation: 22-year-old male presenting with left-sided abdominal pain and some lightheadedness. He has similar episode last December and was diagnosed with possible mild diverticulitis and had a course of antibiotics. He did have 3 CT scans of the abdomen and pelvis in the 1 month. Today his abdomen is soft with some very mild left-sided tenderness. There is certainly no rebound or guarding. Certainly no surgical findings. Toe will be to place an IV, CBC, chemistry, urinalysis. IV analgesia and antiemetics. He is afebrile. I certainly do not want to repeat CT scan on him at this time given the fact that this young man had 3 CT scans of his abdomen and pelvis in 1 month. Last year for what was at worst mild diverticular disease. If his CBC is normal plan will be to refer to Gastroenterology for further evaluation. Will consider oral antibiotics once I have his blood count results. Patient is improved after IV Toradol fluids and antiemetics. Abdomen is soft and benign. Pain is almost gone. Laboratory evaluations are unremarkable. I do not think he has a surgical abdomen. Given his history of diagnosis of diverticulitis which is documented on CT scan I cannot entirely rule out the possibility of early diverticulitis, however I think that this is unlikely. Will cover him with oral antibiotics and refer him to GI. - Data Points Laboratory Results: 07/17/18 07:25 POC Sodium 141 mEq/L mEq/L (135-145) POC Potassium 4.1 mEq/L mEq/L (3.3-5.0) POC Chloride 106.0 mEq/L mEq/L (97-110) POC Total CO2 26 mEq/L mEq/L (22-31) POC BUN 13 mg/dL mg/dL (7-23) POC Creatinine 0.7 mg/dL mg/dL (0.7-1.3) POC Glucose 92 mg/dL mg/dL (70-100) POC Calcium 9.4 mg/dL mg/dL (8.5-10.4) Medications Given: Discontinued Medications Sodium Chloride (Ns) 1,000 mls @ 0 mls/hr IV ONCE ONE; Wide Open PRN Reason: Protocol Stop: 07/17/18 07:05 Last Admin: 07/17/18 07:20 Dose: 1,000 mls Ketorolac Tromethamine (Toradol) 15 mg IVP EDNOW ONE Stop: 07/17/18 07:05 Last Admin: 07/17/18 07:27 Dose: 15 mg Ondansetron HCl (Zofran) 4 mg IVP EDNOW ONE Stop: 07/17/18 07:05 Last Admin: 07/17/18 07:27 Dose: 4 mg Point of Care Test Results: CBC CBC Collection Date 07/17/18 CBC Collection Time 07:20 WBC 5.2 RBC 5.02 HGB 15.2 HCT 43.5 PLT 219 Neut # 3.1 Neut 61.2 LYMPH # 1.7 LYMPH 32 Other WBC # 0.4 Other WBC 6.8 MCV 86.7 Chemistry 07/17/18 07:25 POC Sodium 141 mEq/L mEq/L (135-145) POC Potassium 4.1 mEq/L mEq/L (3.3-5.0) POC Chloride 106.0 mEq/L mEq/L (97-110) POC Total CO2 26 mEq/L mEq/L (22-31) POC BUN 13 mg/dL mg/dL (7-23) POC Creatinine 0.7 mg/dL mg/dL (0.7-1.3) POC Glucose 92 mg/dL mg/dL (70-100) POC Calcium 9.4 mg/dL mg/dL (8.5-10.4) Urine Dip Collection Date 07/17/18 Collection Time 07:45 Specific [place] (1.002-1.030) 1.025 PH (5.0-7.5) 7.0 Leukocytes (Negative) Negative Nitrites (Negative) Negative Protein (Negative) Negative Glucose (Negative) Negative Ketones (Negative) Negative Urobilnogen (0.2-1.0 EU) 0.2 Bilirubin (Negative) Negative Blood (Negative) Negative Departure - Departure Disposition: Home, Routine, Self-Care Clinical Impression: Abdominal pain Condition: Good Instructions: Abdominal Pain (ED) Additional Instructions: You may have early mild diverticulitis. Is important take take your full course of antibiotics. Follow up with Gastroenterology in 3-4 days for further evaluation. Referrals: Scott Croft MD [Medical Doctor] - As per Instructions Prescriptions: Amoxicillin/Clavulanate Pot [Augmentin 875 MG TAB (*)] 875 mg PO BID #20 tab
[2018-07-17 08:20] VITALS: BP 118/69
== END 2018-07-17 08:55 | disposition home or self-care (01) ==
LOC: CED 06:16
DX: R10.9 Unspecified abdominal pain (principal); R42 Dizziness and giddiness; E86.9 Volume depletion, unspecified
CPT/HCPCS: 80048-ER; 96361-ER; 96374-ER; 96375-ER; 99284-ER; J1885; J2405